=== PATIENT | female | born 1950 | race Caucasian/White ===

== ENCOUNTER → 2018-09-28 12:12 | Outpatient (CLI) | payer MEDICARE, BC, SELFPAY ==
--- NOTE | 2018-09-28 | DI.MG.S_ITS ---
BILATERAL DIGITAL SCREENING MAMMOGRAM 3D/2D WITH CAD: 09/28/2018 CLINICAL: Routine screening. Family history of breast cancer. Comparison is made to exams dated: 09/17/2014 mammogram, 11/04/2011 mammogram, and 11/02/2011 mammogram - [facility]. The tissue of both breasts is heterogeneously dense. This may lower the sensitivity of mammography. Current study was also evaluated with a Computer Aided Detection (CAD) system. No significant masses, calcifications, or other findings are seen in either breast. There has been no significant interval change. IMPRESSION: NEGATIVE There is no mammographic evidence of malignancy. A 1 year screening mammogram is recommended. This exam was interpreted at Station ID: [id number]. NOTE: For mammograms, a report in lay terms will be sent to the patient. Approximately 15% of breast malignancies will not be visualized mammographically. In the management of a palpable breast mass, a negative mammogram must not discourage biopsy of a clinically suspicious lesion. Electronically Signed By: Juan rojas/ernesto:09/28/2018 14:40:24 letter sent: Normal Exam ACR BI-RADS Category 1: Negative [id number]
== END ==
PROVIDERS: PCP Family Medicine; Visit Provider Family Medicine
DX: Z12.31 Encounter for screening mammogram for malignant neoplasm of breast (principal); Z80.3 Family history of malignant neoplasm of breast; M81.0 Age-related osteoporosis without current pathological fracture; Z78.0 Asymptomatic menopausal state; Z82.62 Family history of osteoporosis
CPT/HCPCS: 77063; 77067; 77080

== ENCOUNTER → 2019-11-06 11:44 | Outpatient (ROUT) | payer MEDICARE, BC, SELFPAY ==
[2019-11-06 12:22] LABS: D Dimer < 200 ng/mL (<230)
== END ==
PROVIDERS: PCP Family Medicine; Visit Provider Family Medicine
DX: R25.2 Cramp and spasm (principal); R00.2 Palpitations; Z79.899 Other long term (current) drug therapy
CPT/HCPCS: 85379

== ENCOUNTER → 2020-07-24 12:25 | Outpatient (CLI) | payer MEDICARE, BC, SELFPAY ==
--- NOTE | 2020-07-24 | DI.MRI.S_ITS ---
PROCEDURE: MR HEAD/BRAIN WO/W CON INDICATIONS: Hallucinations, unspecified TECHNIQUE: Noncontrast axial T1 spin echo, axial T2 fast spin echo, sagittal and axial FLAIR, coronal T2 fast spin echo, axial gradient echo, axial diffusion and ADC through the brain. After the administration of contrast, axial and coronal T1 spin echo with fat saturation through the brain. COMPARISON: None. FINDINGS: Image quality: Excellent. CSF spaces: Basal cisterns are patent. No extra-axial fluid collections. Ventricles are normal in size and shape. Brain: No midline shift. No intracranial bleeds or masses. No abnormal intracranial enhancement. There is mild cerebral volume loss for age. There is minimal periventricular white matter chronic small vessel ischemic change. The brainstem appears normal. Diffusion-weighted images demonstrate no acute ischemic insults. No chronic ischemic insults. Normal intravascular flow voids are present. Skull and face: Calvarial marrow is normal in signal. Orbits appear normal. Sinuses: Sinuses and mastoids appear clear. IMPRESSION: 1. Mild volume loss. Minimal small vessel ischemic disease. 2. No acute process. No recent infarct. Dictated by: Alf Calderon M.D. on 07/24/2020 at 13:40 Approved by: Alf Calderon M.D. on 07/24/2020 at 13:41
== END ==
PROVIDERS: PCP Family Medicine; Referring Provider Student in an Organized Health Care Education/Training Program; Visit Provider Student in an Organized Health Care Education/Training Program
DX: R44.3 Hallucinations, unspecified (principal); F41.9 Anxiety disorder, unspecified; F32.9 Major depressive disorder, single episode, unspecified; R44.0 Auditory hallucinations
CPT/HCPCS: 70553

== ENCOUNTER 2020-09-11 17:49 | Emergency (ER) | payer MEDICARE, BC, SELFPAY ==
[2020-09-11] VITALS (9 sets, daily range): BP systolic 118–140; BP diastolic 59–78; PULSE 76–87; RESP 14–32; TEMP 36.6; O2SAT 99–100; BMI 23.8
--- NOTE | 2020-09-11 18:59 | ED.ARRPALP ---
HPI - Arrhythmia/Palpitations General Chief Complaint: Arrhythmia/Palpitations Stated Complaint: possible panic attack Time Seen by Provider: 09/11/20 18:58 Source: patient Mode of arrival: Ambulatory Limitations: no limitations History of Present Illness HPI narrative: Patient is a 70-year-old female who presents with chest palpitations. She has a new diagnosis of Parkinson's and has some anxiety that goes along with it. She has been taking Xanax for her anxiety however the Xanax did not work today. She feels some chest discomfort in the center of her chest. Nonradiating no provocation or palliation. It is mild pain now. She is being followed by Neurology and Psychiatry for new diagnosis. MD complaint: palpitations Related Data Allergies Allergy/AdvReac Type Severity Reaction Status Date / Time No Known Drug Allergies Allergy Verified 09/11/20 18:00 Review of Systems Review of Systems Narrative: GENERAL: Denies chills, fatigue, malaise, fever, sweats, travel HEENT: Denies sinus pain, ear pain, sore throat, difficulty swallowing, neck pain RESPIRATORY: Denies dyspnea, cough, wheezing, hemoptysis, sputum. CARDIOVASCULAR: See HPI GASTROINTESTINAL: Denies nausea, vomiting, abdominal pain, diarrhea, constipation, melena. : Denies dysuria, frequency, incontinence, hematuria, urinary retention, flank pain. MUSCULOSKELETAL: Denies weakness, joint pain, or bony pain SKIN: No rash, no erythema, no pruritus NEUROLOGIC: Denies weakness, dizziness, headache, numbness, change in speech, confusion PSYCHIATRIC: No concerning psychosocial issues. 12 point review of systems is negative except for those stated above and HPI Patient History Medical History Parkinsons Social History Smoking Status: Smoker, status unknown Smoking Status: Smoker, status unknown alcohol intake frequency: holidays/special occasions only Substance Use Type: does not use Exam Initial Vital Signs Initial Vital Signs: Vital Signs Temperature 97.9 F 09/11/20 17:58 Pulse Rate 87 09/11/20 17:58 Respiratory Rate 14 09/11/20 17:58 Blood Pressure 118/72 09/11/20 17:58 Pulse Oximetry 100 09/11/20 17:58 GENERAL: Alert slightly anxious 70-year-old female but appears well and in no acute distress. HEENT: Head atraumatic,EOMI, pupils reactive, face symmetric, moist mucous membranes CARDIOVASCULAR: Regular rate and rhythm without murmurs, rubs or gallops. RESPIRATORY: Breath sounds equal bilaterally, no wheezes rales or rhonchi. ABDOMEN: Soft, nontender. Normoactive bowel sounds all 4 quadrants. No guarding or rebound. EXTREMITIES: Normal range of motion, no clubbing or edema. Neurovascularly intact NEUROLOGICAL: Alert and oriented x4.Normal gait and speech. SKIN: Warm, dry, no laceration, no petechiae, no rashes or lesions. Scores HEART Score Heart Score history: Slightly Suspicious Heart Score EKG: Normal Heart Score Age: > or = 65 years old Heart Score risk factors: No known risk factors Heart Score troponin: < or = to normal limit Heart Score Total: 2 Course Orders Ordered: ED Orders 09/11/20 18:00 EKG-12 Lead Stat 09/11/20 18:22 Complete Blood Count AUTO DIFF Stat Comprehensive Metabolic Panel Stat Lipase Stat NT-proBNP (BNP-Adult 18+) Stat Troponin & CK Cardiac Panel Stat 09/11/20 19:06 XR chest 1V Stat Discontinued Medications Aspirin (Aspirin 81 Mg Chew Tab) 324 mg PO NOW ONE Stop: 09/11/20 19:07 Last Admin: 09/11/20 19:23 Dose: 324 mg Documented by: LOUISE Lorazepam (Lorazepam 2 Mg/Ml Inj) 0.5 mg IV NOW ONE Stop: 09/11/20 19:07 Last Admin: 09/11/20 19:23 Dose: 0.5 mg Documented by: LOUISE Vital Signs Vital signs: Vital Signs - 8 hr 09/11/20 17:58 09/11/20 18:10 09/11/20 18:14 Temperature 97.9 F Pulse Rate 87 83 86 Respiratory Rate 14 16 Blood Pressure 118/72 140/78 135/77 Pulse Oximetry 100 99 99 09/11/20 18:30 09/11/20 19:00 09/11/20 19:30 Temperature Pulse Rate 80 79 77 Respiratory Rate 32 H 28 H 26 H Blood Pressure 122/71 119/72 Pulse Oximetry 99 100 99 09/11/20 19:31 09/11/20 20:00 09/11/20 20:30 Temperature Pulse Rate 80 76 76 Respiratory Rate 24 28 H 26 H Blood Pressure 131/59 L 125/67 129/65 Pulse Oximetry 99 100 100 MDM - Arrhythmia/Palpitations Lab Data Attestation: I reviewed the patient's lab results. Result diagrams: 09/11/20 18:22 09/11/20 18:22 Labs: Lab Results 09/11/20 09/11/20 Range/Units 18:22 18:22 WBC 9.4 (4.5-11.0) X10^3/uL RBC 3.88 L (4.0-5.2) X10^6/uL Hgb 12.8 (12.0-16.0) g/dL Hct 37.5 (36-46) % MCV 96.5 (80-100) fL MCH 32.9 (26-34) PG MCHC 34.1 (30-36) % RDW 13.0 (11.6-14.8) % Plt Count 284 (150-400) X10^3/uL Neut % (Auto) 60.2 (50-75) % Lymph % (Auto) 30.3 (25-40) % Spalding % (Auto) 7.0 (3-14) % Eos % (Auto) 2.0 (2-4) % Baso % (Auto) 0.5 (0-2) % Neut # (Auto) 5600 (7535-3908) /uL Lymph # (Auto) 2800 (0193-0709) /uL Spalding # (Auto) 700 (0-900) /uL Eos # (Auto) 200 (0-450) /uL Baso # (Auto) 0 (0-100) /uL Sodium 141 (137-145) mmol/L Potassium 4.1 (3.4-5.1) mmol/L Chloride 105 (98-107) mmol/L Carbon Dioxide 26 (22-32) mmol/L BUN 23 H (7-17) mg/dL Creatinine 0.64 (0.52-1.04) mg/dL Estimated GFR > 60.0 (>60) mL/min BUN/Creatinine Ratio 35.9 H (6-22) Glucose 100 (80-110) mg/dL Calcium 10.2 (8.4-10.2) mg/dL Total Bilirubin 0.5 (0.2-1.3) mg/dL AST 32 (14-36) IU/L ALT 10 (<35) IU/L Alkaline Phosphatase 95 (38-126) U/L Total Creatine Kinase 39 (30-135) U/L CK-MB (CK-2) TNP CK-MB (CK-2) Rel Index TNP Troponin I < 0.012 (0.01-0.034) ng/mL NT-Pro-B Natriuret Pep 102 (<125) pg/mL Total Protein 8.4 H (6.3-8.2) g/dL Albumin 4.7 (3.5-5.0) g/dL Globulin 3.7 (1.7-4.1) g/dL Albumin/Globulin Ratio 1.3 (1.0-2.8) Lipase 75 (23-300) U/L Imaging Data Chest x-ray: Radiologist's Impresson: PROCEDURE: XR CHEST 1V INDICATIONS: chest pain TECHNIQUE: One view of the chest was acquired. COMPARISON: None. FINDINGS: Surgical changes and devices: None. Lungs and pleura: Lungs are clear. No pleural effusions or pneumothorax. Mediastinum: Mediastinal contours appear normal. Heart size is normal. Bones and chest wall: No suspicious bony lesions. Overlying soft tissues appear unremarkable. IMPRESSION: No acute cardiopulmonary abnormality. Dictated by: Sherman Santos M.D. on 09/11/2020 at 19:54 ECG Data Attestation: I personally reviewed and interpreted this ECG as follows: Interpretation: Normal sinus rhythm rate 81 p.r. interval 148 QRS [address] changes no T-wave inversions MDM Narrative Medical decision making narrative: Patient is having atypical chest pain possibly related to Parkinson's or her ongoing anxiety. Ativan seemed to help her. Troponin EKG chest x-ray and workup in the ED are overall reassuring. I discussed with her that she may need further cardiac workup with her primary care provider. Discharge Plan Departure Patient Disposition: Home Clinical Impression: Atypical chest pain Instructions: DI for Atypical Chest Pain Activity Restrictions/Additional Instructions: *You have been diagnosed with atypical chest pain *What to do: At this time blood work is overall reassuring. You may require further heart testing with her primary care provider but at this time you do not need to stay in the hospital. *Continue to take medications as directed *Follow up with your primary care provider in 2-3 days *Return to ER if you should have pacing chest pain palpitations dizziness lightheadedness shortness of breath or any new, worsening or concerning symptoms Referrals: Aniceto Lion MD [Primary Care Provider] -
--- NOTE | 2020-09-11 19:06 | DI.RAD.S_ITS ---
PROCEDURE: XR CHEST 1V INDICATIONS: chest pain TECHNIQUE: One view of the chest was acquired. COMPARISON: None. FINDINGS: Surgical changes and devices: None. Lungs and pleura: Lungs are clear. No pleural effusions or pneumothorax. Mediastinum: Mediastinal contours appear normal. Heart size is normal. Bones and chest wall: No suspicious bony lesions. Overlying soft tissues appear unremarkable. IMPRESSION: No acute cardiopulmonary abnormality. Dictated by: Sherman Santos M.D. on 09/11/2020 at 19:54 Approved by: Sherman Santos M.D. on 09/11/2020 at 19:54
[2020-09-11 19:14] LABS: Add Manual Diff / Slide Review NO; Basophils Absolute Auto 0 /uL (0-100); Basophils Percent Auto 0.5 % (0-2); Eosinophils Absolute Auto 200 /uL (0-450); Hematocrit 37.5 % (36-46); Hemoglobin 12.8 g/dL (12.0-16.0); Lymphocytes Absolute Auto 2800 /uL (1100-4500); Lymphocytes Percent Auto 30.3 % (25-40); Mean Corpuscular HGB Conc 34.1 % (30-36); Mean Corpuscular Hemoglobin 32.9 PG (26-34); Mean Corpuscular Volume 96.5 fL (80-100); Monocytes Absolute Auto 700 /uL (0-900); Neutrophils Absolute Auto 5600 /uL (1500-7000); Neutrophils Percent Auto 60.2 % (50-75); Platelet Count 284 X10^3/uL (150-400); Red Blood Cell Count 3.88 X10^6/uL (4.0-5.2); White Blood Cell Count 9.4 X10^3/uL (4.5-11.0)
[2020-09-11 19:19] LABS: Alanine Aminotransferase 10 IU/L (<35); Albumin 4.7 g/dL (3.5-5.0); Albumin Globulin Ratio 1.3 (1.0-2.8); Alkaline Phosphatase 95 U/L (38-126); Aspartate Aminotransferase 32 IU/L (14-36); BUN Creatinine Ratio 35.9 (6-22); Bilirubin Total 0.5 mg/dL (0.2-1.3); Blood Urea Nitrogen 23 mg/dL (7-17); Calcium 10.2 mg/dL (8.4-10.2); Carbon Dioxide 26 mmol/L (22-32); Chloride 105 mmol/L (98-107); Creatine Kinase 39 U/L (30-135); Estimated Glomerular Filt Rate > 60.0 mL/min (>60); Globulin 3.7 g/dL (1.7-4.1); Glucose 100 mg/dL (80-110); HEMOLYSIS < 15 (0-50); Lipase 75 U/L (23-300); Potassium 4.1 mmol/L (3.4-5.1); Sodium 141 mmol/L (137-145); Total Protein 8.4 g/dL (6.3-8.2)
[2020-09-11] MEDS: LORazepam 2 MG/ML INJ 0.5 MG IV (19:23)
[2020-09-11] MEDS: ASPIRIN 81 MG CHEW TAB 324 MG PO (19:23)
[2020-09-11 19:32] LABS: NT-proBNP (BNP-Adult 18+) 102 pg/mL (<125); Troponin I < 0.012 ng/mL (0.01-0.034)
== END 2020-09-11 20:48 | disposition home or self-care (01) ==
PROVIDERS: Emergency Provider Emergency Medicine; PCP Family Medicine
DX: R07.89 Other chest pain (principal); G20 Parkinson's disease; F41.9 Anxiety disorder, unspecified
CPT/HCPCS: 36415; 71045; 80053; 82550; 83690; 83880; 84484; 85025; 93005; 96374; 99284; J2060

== ENCOUNTER 2021-06-29 14:30 | Outpatient (RCR) | payer MEDICARE, BC, SELFPAY ==
--- NOTE | 2021-06-12 16:39 | ST.OPPOC ---
Physical, Occupational & Speech Therapy At [facility] Visit Care Team Role Provider Type Aniceto Lion MD Attending Provider Physician Family Provider Primary Care Provider Referring Provider Address: [address] [place], [address] Speech Pathology Plan of Care Plan of Care Dates 06/12/2021 - Cognitive Function Within normal limits Findings Results of the CLQT indicate all cognitive skills (i.e., attention, memory, executive functions, language, and visuospatial skills) are WNL. Some difficulty noted with perseveration, though Nesha is able to identify when she is perseverating. Noted that when perseveration is identified, Nesha does not correct perseverated items. Nesha reported difficulty with saliva management, especially when sleeping. Recommend treatment to maintain current skills with swallowing and cognition given diagnosis of progressive disease. Short Term Goals 1. Nesha will demonstrate independent use of 3 external supports (e.g., calendar, alarms, etc.) to in her daily life as reported by patient and her and observed in treatment sessions. 2. Nesha will perform exercises to increase strength, coordination, and ROM of swallow musculature independently to maintain current swallow ability and decrease risk of aspiration. Senior Care Goals 1. Nesha will demonstrate independent use of cognitive strategies across multiple settings to maintain/slow decline of cognitive skills. Electronically Signed by: JOAQUIN Gannon 06/15/21 0058 Please Sign and Return: I have reviewed this Plan of Care and certify that the skilled therapy services above are required to meet the patient?s needs. Physician Signature Date Printed Name and Credentials Clinical Instructor Signature Printed Name and Credentials
--- NOTE | 2021-06-12 16:39 | ST.OP.ACL ---
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 Lion Reason for Referral Memory difficulties, difficulty swallowing, diagnosis of Parkinsons Setting Assessment Location Outpatient Care Visit Type Note Type Initial evaluation Next Note Type Next Note Type Treatment Note Patient Information Identification Type Name Medical History Nesha is a 71 year old female. She received a diagnosis of Parkinsons in July 2020 and a diagnosis of Lewy-Body Dementia in August 2020. Per case history, Nesha has a history of anxiety and depression and has been experiencing cognitive decline and increasing auditory hallucinations. Language(s) Spoken in the Home [employer] Occupation Status Retired Previous Therapy History of Therapy Nesha was seen at [facility] for a swallow screen on 06/09/2021 and referred for speech services and [facility]. Subjective Patient Report eNsha reported she experiences saliva pooling at night, though symptoms increase when she takes an over the counter allergy medication. She added she has been experiencing nausea with her pills, though the nausea has improved with a slower rate of eating and reducing spicy foods. Nesha's , Manjinder, was present for the evaluation and reported Nesha exhibits congested breathing while sleeping. Nesha reported no difficulty chewing or swallowing food or liquids. When clinician inquired about cognitive difficulties, Nesha reported she has some difficulty with memory and uses a calendar to track appointments and a check -forest system to track medications. She added that she will sometimes forget medications even when using this system. Mental Status Alert,Responsive,Cooperative Assessment Oral Motor Examination Completed Yes Results Completed oral motor exam. Nesha presents with slight right deviation of lips on pucker when alternating between smile and pucker. Facial features were symmetrical at rest. Jaw deviated slightly to the left when opening, though Nesha reported no pain or discomfort with this movement. Tongue strength and ROM was WNL. Velum deviated slightly to the left in motion, though was symmetrical at rest. One tooth missing on lower right side, otherwise dentition was WNL. Did not palpate hyolaryngeal elevation and excursion at this appointment as this was completed during swallow screen on 06/09/2021 by this clinician. At swallow screen, hyolaryngeal elevation and excursion was WNL. Structure and function of oral mechanism appears WNL for the purposes of speech and swallowing at this time. Will provide Nesha exercises to maintain strength of oral mechanism due to concerns with saliva management and diagnosis of Parkinsons. Informal Assessment Receptive Language Normal Yes Expressive Language Normal Yes Pragmatic Language Normal Yes Formal Assessment Standardized Test/Screener Type Cognitive Linguistic Quick Test (CLQT) Administration Complete Results Results of the CLQT indicate all cognitive skills are WNL. Nesha demonstrated predictive awareness of errors during clock drawing task with regards to spacing of numbers. Difficulty with retelling a story, though Nesha was able to answer questions regarding details of the story with no difficulty. Nesha identified when she made an error on the symbol trials task and was able to correct it independently. She reported she had been practicing generative naming with animals at home and performed very well on this task. Difficulty noted with generative naming with a novel category (i.e., words starting with m). Nesha perseverated some items when completing generative naming task, though identified that she had said them before each time she listed them again. Significant perseveration noted on design generation task, though Nesha again was able to identify when she was repeating a design she had already drawn. Nehsa did not correct these repetitions after identifying them. Findings/Results Cognitive Function Within normal limits Findings Results of the CLQT indicate all cognitive skills (i.e., attention, memory, executive functions, language, and visuospatial skills) are WNL. Some difficulty noted with perseveration, though Nesha is able to identify when she is perseverating. Noted that when perseveration is identified, Nesha does not correct perseverated items. Nesha reported difficulty with saliva management, especially when sleeping. Recommend treatment to maintain current skills with swallowing and cognition given diagnosis of progressive disease. Prognosis Prognosis Fair Based on Cognitive status,Family support,Comorbidities,Duration of symptoms/severity,Time since onset Plan of Care Speech-Language Treatment Yes Frequency Once a week Duration 45 minutes Patient/Caregiver Education Described results of evaluation,Patient expressed understanding of evaluation, Patient expressed agreement with goals and treatment plans ,Family/caregivers expressed understanding of evaluation, Family/caregivers expressed agreement with goals and treatment plan,Patient requires further education/ training,Family/caregivers require further education/ training Short Term Goals 1. Nesha will demonstrate independent use of 3 external supports (e.g., calendar, alarms, etc.) to in her daily life as reported by patient and her and observed in treatment sessions. 2. Nesha will perform exercises to increase strength, coordination, and ROM of swallow musculature independently to maintain current swallow ability and decrease risk of aspiration. Snf Goals 1. Nesha will demonstrate independent use of cognitive strategies across multiple settings to maintain/slow decline of cognitive skills. Discharge Recommendations Home
--- NOTE | 2021-06-16 16:29 | ST.OPTN ---
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 She received a diagnosis of Parkinsons in July 2020 and a diagnosis of Lewy-Body Dementia in August 2020. Per case history, Nesha has a history of anxiety and depression and has been experiencing cognitive decline and increasing auditory hallucinations. Subjective Identification Type Name Identification Reconciled With Medical Record Others Present Family Observations/Patient Presentation Nesha arrived on time accompanied by her , who was present for the session. Chief Complaint(s) Swallowing,Cognitive Objective Short Term Goals 1. Nesha will demonstrate independent use of 3 external supports (e.g., calendar, alarms, etc.) in her daily life as reported by patient and her and observed in treatment sessions. 2. Nesha will perform exercises to increase strength, coordination, and ROM of swallow musculature independently to maintain current swallow ability and decrease risk of aspiration. Intermediate Goals Nesha will demonstrate independent use of cognitive strategies across multiple settings to maintain/slow decline of cognitive skills. Treatment Activities Discussed results of CLQT assessment and areas of difficulty with cognitive domains in daily life. Provided patient education regarding cognitive domains, swallowing, progressive disease, and therapeutic goals . Assessment Patient Response to Treatment Good Rehab Potential Good Impairments Identified Dementia,Dysphagia,Parkinson's Disease Progress Towards Goals Good Progress Assessment of Overall Progress Improving Assessment of Improvement Nesha reported she has difficulty with multitasking as she experiences increased anxiety. She added that she experiences difficulty when reading as she becomes fidgety and has trouble concentrating . Nesha reported she is often fidgety and distracted by her thoughts. She added her anxiety has increased since COVID and she is working with her PCP to adjust her medications. Nesha reported she used to cook more, though has decreased how much she cooks over the past year. She indicated the decrease in cooking is more due to her decrease in taste and smell than any cognitive difficulties. Nesha inquired about a Parkinson's specific diet and indicated she has difficulty putting on weight. Nesha reported difficulty with tracking lengthy to-do lists and indicated she keeps written lists but loses them. Discussed use of load planner to track appointments and to-do lists. Provided education on prognosis with memory and explored possible implementation of memory notebook as memory declines. Discussed swallowing difficulty and provided exercises for home practice. Reviewed with Patient Goals,Home Exercise Program Patient/Caregiver Understanding Good Plan Amount of Therapy Recommended 6 Months Frequency of Treatment Once a Week Comment or once every other week Length of Session 45 Minutes Therapeutic Contents Client Education,Cognitive- Linguistic Training,Home Exercise Program,Swallowing/ Feeding Provided Patient/Caregiver Instruction Home Exercise Program,Plan of Care,Questions/Concerns Therapy Recommendations Continue with Current Program
--- NOTE | 2021-06-26 15:16 | ST.OPTN ---
Visit Care Team Role Provider Type Aniceto Lion MD Attending Provider Physician Family Provider Primary Care Provider Referring Provider Address: [facility] [address], [place], [address] HYDRAULIC MINER BLASTING Treatment Note HYDRAULIC MINER BLASTING Treatment Note Start: 06/16/21 15:18 Freq: Status: Active Protocol: Document 06/26/21 15:08 ZS (Rec: 06/26/21 15:16 ZS [id number]) Speech Pathology Treatment Note Session Time Visit Start Time 14:30 Visit Stop Time 15:10 Total Visit Minutes 40 Visit Information Visit Number 2 Plan of Care Dates 06/12/2021 - 11/12/2021 Insurance Information Medicare Setting Treatment Setting Outpatient Care Visit Type Note Type Treatment Note Next Note Type Next Note Type Treatment Note General Information General Information Nesha is a 71 year old female. She received a diagnosis of Parkinsons in July 2020 and a diagnosis of Lewy-Body Dementia in August 2020. Per case history, Nesha has a history of anxiety and depression and has been experiencing cognitive decline and increasing auditory hallucinations. Subjective Identification Type Name Identification Reconciled With Medical Record Others Present Family Observations/Patient Presentation Nesha arrived on time accompanied by her , who was present for the session. Chief Complaint(s) Swallowing,Cognitive Objective Short Term Goals 1. Nesha will demonstrate independent use of 3 external supports (e.g., calendar, alarms, etc.) in her daily life as reported by patient and her and observed in treatment sessions. 2. Nesha will perform exercises to increase strength, coordination, and ROM of swallow musculature independently to maintain current swallow ability and decrease risk of aspiration. Residential Goals Nesha will demonstrate independent use of cognitive strategies across multiple settings to maintain/slow decline of cognitive skills. Treatment Activities Discussed results of CLQT assessment and progress with strategies implemented in previous session. Assessment Patient Response to Treatment Good Rehab Potential Good Impairments Identified Dementia,Dysphagia,Parkinson's Disease Progress Towards Goals Good Progress Assessment of Overall Progress Improving Assessment of Improvement Nesha reported she has difficulty reading, as she gets fidgity and cannot read more than a paragraph. She added she will sometimes have difficulty with word finding while completing crossword puzzles and in her daily life. She indicated she has been using check ryder to track which pills she has taken and this is working well. Discussed targeting word- finding strategies in future sessions and Nesha will practice these at home this week. Discussed use of fidgit tools (e.g., spinners, stress balls, etc.) while reading to increase ability to attend to book. If fidgit tools do not help, audiobooks while walking are recommended. Nesha added saliva management has improved with the allergy medication, though she is having difficulty swallowing her medications late at night. Discussed use of chin tuck or carrier to aid in swallowing medications. Nesha expressed interest in trying strategies. Reviewed with Patient Goals,Home Exercise Program Patient/Caregiver Understanding Good Plan Amount of Therapy Recommended 6 Months Frequency of Treatment Once a Week Comment or once every other week Length of Session 45 Minutes Therapeutic Contents Client Education,Cognitive- Linguistic Training,Home Exercise Program,Swallowing/ Feeding Provided Patient/Caregiver Instruction Home Exercise Program,Plan of Care,Questions/Concerns Therapy Recommendations Continue with Current Program
--- NOTE | 2021-06-29 15:36 | ST.OPTN ---
Visit Care Team Role Provider Type Aniceto Lion MD Attending Provider Physician Family Provider Primary Care Provider Referring Provider Address: [address], [place], [address] LAND SURVEYOR Treatment Note LAND SURVEYOR Treatment Note Start: 06/16/21 15:18 Freq: Status: Active Protocol: Document 06/29/21 15:32 ZS (Rec: 06/29/21 15:36 ZS [id number]) Speech Pathology Treatment Note Session Time Visit Start Time 14:30 Visit Stop Time 15:25 Total Visit Minutes 55 Visit Information Visit Number 3 Plan of Care Dates 06/12/2021 - 11/12/2021 Insurance Information Medicare Setting Treatment Setting Outpatient Care Visit Type Note Type Treatment Note Next Note Type Next Note Type Treatment Note General Information General Information Nesha is a 71 year old female. She received a diagnosis of Parkinsons in July 2020 and a diagnosis of Lewy-Body Dementia in August 2020. Per case history, Nesha has a history of anxiety and depression and has been experiencing cognitive decline and increasing auditory hallucinations. Subjective Identification Type Name Identification Reconciled With Medical Record Others Present Family Observations/Patient Presentation Nesha arrived on time accompanied by her , who was present for the session. Chief Complaint(s) Swallowing,Cognitive Objective Short Term Goals 1. Nesha will demonstrate independent use of 3 external supports (e.g., calendar, alarms, etc.) in her daily life as reported by patient and her and observed in treatment sessions. 2. Nesha will perform exercises to increase strength, coordination, and ROM of swallow musculature independently to maintain current swallow ability and decrease risk of aspiration. Shelter Goals Nesha will demonstrate independent use of cognitive strategies across multiple settings to maintain/slow decline of cognitive skills. Treatment Activities Discussed strategy implementation and answered questions. Provided resources and discussed strategies for voice, attention, and word finding. Assessment Patient Response to Treatment Good Rehab Potential Good Impairments Identified Dementia,Dysphagia,Parkinson's Disease Progress Towards Goals Good Progress Assessment of Overall Progress Improving Assessment of Improvement Nesha reported she continues to get fidgety when sitting for prolonged periods and did not have a chance to try fidget tools. She will talk to her doctor this week to determine if it is related to medications and will try fidgit toys and meditation at home. Nesha reported success with chin tuck strategy when swallowing and will continue use of this. Practiced use of descriptions to help with word finding, which Nesha used independently. Reviewed with Patient Goals,Home Exercise Program Patient/Caregiver Understanding Good Plan Amount of Therapy Recommended 6 Months Frequency of Treatment Once a Week Comment or once every other week Length of Session 45 Minutes Therapeutic Contents Client Education,Cognitive- Linguistic Training,Home Exercise Program,Swallowing/ Feeding Provided Patient/Caregiver Instruction Home Exercise Program,Plan of Care,Questions/Concerns Therapy Recommendations Continue with Current Program
--- NOTE | 2021-08-04 14:29 | ST.OPDS ---
Visit Care Team Role Provider Type Aniceto Lion MD Attending Provider Physician Family Provider Primary Care Provider Referring Provider Address: [facility] [address], [place], [address] TAI CHI INSTRUCTOR Treatment Note TAI CHI INSTRUCTOR Treatment Note Start: 06/16/21 15:18 Freq: Status: Active Protocol: Document 08/04/21 14:24 ZS (Rec: 08/04/21 14:29 ZS [id number]) Speech Pathology Treatment Note Visit Information Plan of Care Dates 06/12/2021 - 11/12/2021 Insurance Information Medicare Setting Treatment Setting Outpatient Care Visit Type Note Type Discharge Summary General Information Patient History Nesha is a 71 year old female. She received a diagnosis of Parkinsons in July 2020 and a diagnosis of Lewy-Body Dementia in August 2020. Per case history, Nesha has a history of anxiety and depression and has been experiencing cognitive decline and increasing auditory hallucinations. Subjective Identification Type Name Identification Reconciled With Medical Record Others Present Family Observations/Patient Presentation Nesha called to discharge from speech therapy as she does not feel like she needs it anymore. Chief Complaint(s) Swallowing,Cognitive Objective Short Term Goals 1. Nesha will demonstrate independent use of 3 external supports (e.g., calendar, alarms, etc.) in her daily life as reported by patient and her and observed in treatment sessions. 2. Nesha will perform exercises to increase strength, coordination, and ROM of swallow musculature independently to maintain current swallow ability and decrease risk of aspiration. Custodial Goals Nesha will demonstrate independent use of cognitive strategies across multiple settings to maintain/slow decline of cognitive skills. Treatment Activities Nesha called to discharge from speech therapy as she does not feel like she needs it anymore. Assessment Patient Response to Treatment Excellent Rehab Potential Excellent Impairments Identified Dementia,Dysphagia,Parkinson's Disease Progress Towards Goals Goals Met,Appropriate for Discharge Assessment of Overall Progress Improving Assessment of Improvement Nesha met all goals and independently uses strategies discussed and practiced during sessions. She is appropriate for discharge at this time. Reviewed with Patient Goals,Home Exercise Program Patient/Caregiver Understanding Good Plan Amount of Therapy Recommended No Further Therapy Frequency of Treatment No Further Therapy Therapeutic Contents Client Education,Cognitive- Linguistic Training,Home Exercise Program,Swallowing/ Feeding Provided Patient/Caregiver Instruction Home Exercise Program,Plan of Care,Questions/Concerns Therapy Recommendations Continue with Current Program, Discharge from Speech Therapy Reason for Discharge Pt request.
== END 2021-08-05 07:54 ==
LOC: SP 14:30
PROVIDERS: Family Provider Family Medicine; PCP Family Medicine; Referring Provider Family Medicine; Visit Provider Family Medicine
DX: R13.10 Dysphagia, unspecified (principal)
CPT/HCPCS: 96125; 97129; 97130

== ENCOUNTER → 2021-07-08 14:41 | Outpatient (CLI) | payer MEDICARE, BC, SELFPAY | PROVIDERS: Family Provider Family Medicine; PCP Family Medicine; Referring Provider Psychiatry & Neurology Psychiatry; Visit Provider Psychiatry & Neurology Psychiatry | DX: Z79.899 Other long term (current) drug therapy (principal) | CPT/HCPCS: 93005 ==

== ENCOUNTER 2021-09-29 14:46 | Emergency (ER) | payer MEDICARE, BC, SELFPAY ==
[2021-09-29] VITALS (11 sets, daily range): BP systolic 131–147; BP diastolic 67–76; PULSE 82–98; RESP 11–18; TEMP 37.1; O2SAT 98–100; BMI 20.6
--- NOTE | 2021-09-29 15:13 | DI.RAD.S_ITS ---
PROCEDURE: XR CHEST 1V INDICATIONS: syncope TECHNIQUE: One view of the chest was acquired. COMPARISON: [facility], CR, XR CHEST 1V, 09/11/2020, 19:34. FINDINGS: Surgical changes and devices: None. Lungs and pleura: Lungs are clear. No pleural effusions or pneumothorax. Mediastinum: Mediastinal contours appear normal. Heart size is normal. Bones and chest wall: No suspicious bony lesions. Overlying soft tissues appear unremarkable. IMPRESSION: No acute cardiopulmonary findings. Dictated by: Lucina Luevano M.D. on 09/29/2021 at 16:23 Approved by: Lucina Luevano M.D. on 09/29/2021 at 16:23
--- NOTE | 2021-09-29 15:13 | ED_ITS ---
HPI - Syncope General Chief Complaint: Dizziness Stated Complaint: SOB DIZZY WEAKNESS Time Seen by Provider: 09/29/21 14:55 Source: patient Mode of arrival: Ambulatory Limitations: no limitations History of Present Illness HPI narrative: Patient is a 71-year-old female who has history of depression and Parkinson's presents today from the ENT office with some dizziness and weakness. Apparently she was there with her who was being seen she was in the waiting room and got dizzy. She says she just did not feel well and wanted to be evaluated. She says that she is dizzy frequently mostly positional. She is frequently nauseated with decrease in appetite, she has lost 50 lb since last January. She says she is generally getting weak. She denies Headaches, chest pain or palpitations. She is not eating or drinking much. She also says she has had ongoing shortness of breath. She says she feels short of breath at rest and with exertion. It has been ongoing for months. She feels like her body is restricting her from taking air. She has no conversational dyspnea and is not currently hypoxic. She denies fever chills. In episodes of chest pain. Related Data Home Medications Medication Instructions Recorded Confirmed carbidopa ER 50 mg-levodopa 200 mg 1 tab PO TID tab 09/16/21 09/16/21 tablet,extended release donepezil 5 mg tablet 10 mg PO BID tab 09/16/21 Previous Rx's Medication Instructions Recorded venlafaxine 75 mg capsule,extended 75 mg PO DAILY #30 cap 06/04/21 release 24 hr pimavanserin 34 mg capsule 34 mg PO DAILY #30 cap 09/16/21 Allergies Allergy/AdvReac Type Severity Reaction Status Date / Time Sulfa (Sulfonamide Allergy Unknown mom told Verified 09/29/21 14:58 Antibiotics) her she had a childhood reaction acetaminophen [From Vicodin] AdvReac Intermediate vomiting Verified 09/29/21 1 4:58 hydrocodone [From Vicodin] AdvReac Intermediate vomiting Verified 09/29/21 14:58 Review of Systems Review of Systems ROS Unobtainable: All systems reviewed & are unremarkable except as noted in HPI and below Constitutional Constitutional: Reports as per HPI, Denies body ache(s), Denies chills, Denies headache(s), Reports lethargy, Reports poor appetite, Reports weakness and Reports weight loss Eyes Eyes: Denies diplopia ENT Ears, Nose, Mouth, and Throat: Reports dizziness and Denies headache(s) Cardiovascular Cardiovascular: Denies syncope, Denies irregular heart rhythm, Denies lightheadedness, Reports dyspnea and Denies orthopnea Respiratory Respiratory: Reports as per HPI, Denies cough, Reports dyspnea and Denies wheezing Gastrointestinal Gastrointestinal: Denies abdominal pain, Reports nausea and Denies vomiting Genitourinary Genitourinary: Denies urinary incontinence Musculoskeletal Musculoskeletal: Denies arthralgias and Denies back pain Integumentary/Breasts Skin/Breast: Denies rash Neurologic Neurologic: Reports dizziness, Denies syncope, Denies headache(s) and Reports weakness Psychiatric Psychiatric: Reports other (History of depression) Allergic/Immunologic Allergic/Immunologic: Denies wheezing Patient History Medical History Parkinsons Social History Smoking Status: Never smoker Smoking Status: Never smoker alcohol intake frequency: holidays/special occasions only Substance Use Type: does not use Exam Initial Vital Signs Initial Vital Signs: Vital Signs Temperature 98.8 F 09/29/21 14:53 Pulse Rate 86 09/29/21 14:53 Respiratory Rate 13 09/29/21 14:53 Blood Pressure 145/67 H 09/29/21 14:53 Pulse Oximetry 100 09/29/21 14:53 GENERAL: Alert 71-year-old female appears mildly weak but no acute distress HEENT: Head atraumatic,EOMI, pupils reactive, face symmetric, [moist] mucous membranes CARDIOVASCULAR: Regular rate and rhythm without murmurs, rubs or gallops. RESPIRATORY: Breath sounds equal bilaterally, no wheezes rales or rhonchi. No tachypnea or conversational dyspnea no sign of respiratory distress ABDOMEN: Soft, nontender. Normoactive bowel sounds all 4 quadrants. No guarding or rebound. EXTREMITIES: Normal range of motion, no clubbing or edema. Neurovascularly intact NEUROLOGICAL: Alert and oriented x4.Normal gait and speech. Ambulatory in the ED without difficulty. 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 SKIN: Warm, dry, no laceration, no petechiae, no rashes or lesions. Scores NIH Stroke Scale Level of Conciousness: Alert, keenly responsive Ask month/age: Answers both questions correctly. Open/close eyes, close hand: Performs both tasks correctly Best gaze horizontal: Normal Visual coe: No visual loss Facial palsy: Normal symetrical movement Left arm drift: No drift for full 10 sec Right arm drift: No drift for full 10 sec Left leg drift: No drift for full 5 sec Right leg drift: No drift for full 5 sec Limb ataxia: Absent Sensory on face/arms/legs: Normal, no sensory loss Best language: No aphasia, normal Dysarthria: Normal Extinction or inattention: No abnormality Total NIH Stroke scale score: 0 PERC Score Age greater than or equal to 50 years: Yes Heart rate greater than or equal to 100 bpm: No Room Air O2 Sat less than 95%: No Unilateral leg swelling: No Recent trauma or surgery: No Hemoptysis: No Prior PE or DVT: No Hormone Use: No Total PERC Score: 1 Course Orders Ordered: ED Orders 09/29/21 15:00 Complete Blood Count AUTO DIFF Stat Comprehensive Metabolic Panel Stat Lipase Stat Troponin & CK Cardiac Panel Stat 09/29/21 15:13 XR chest 1V Stat EKG-12 Lead Stat 09/29/21 15:20 BNP [NT-proBNP (BNP-Adult 18+)] Stat D Dimer Stat 09/29/21 15:51 CT head/brain wo con Stat 09/29/21 17:20 Urinalysis and Microscopic Stat Vital Signs Vital signs: Vital Signs - 8 hr 09/29/21 14:53 09/29/21 14:54 09/29/21 15:00 Temperature 98.8 F Pulse Rate 86 89 84 Respiratory Rate 13 18 Blood Pressure 145/67 H 145/67 H Pulse Oximetry 100 99 100 09/29/21 15:30 09/29/21 16:00 09/29/21 16:20 Temperature Pulse Rate 86 83 82 Respiratory Rate 18 18 16 Blood Pressure 147/76 H 135/72 137/75 Pulse Oximetry 100 98 98 09/29/21 16:30 09/29/21 17:00 09/29/21 17:30 Temperature Pulse Rate 84 91 H 87 Respiratory Rate 11 L 12 11 L Blood Pressure 131/73 142/73 H Pulse Oximetry 99 98 99 09/29/21 18:00 09/29/21 18:30 Temperature Pulse Rate 98 H 92 H Respiratory Rate 17 12 Blood Pressure Pulse Oximetry 98 98 MDM - Syncope Lab Data Result diagrams: 09/29/21 15:00 09/29/21 15:00 Labs: Lab Results 09/29/21 09/29/21 09/29/21 Range/Units 15:00 15:00 15:20 WBC 11.0 (4.5-11.0) X10^3/uL RBC 3.71 L (4.0-5.2) X10^6/uL Hgb 11.9 L (12.0-16.0) g/dL Hct 35.3 L (36-46) % MCV 95.2 (80-100) fL MCH 31.9 (26-34) PG MCHC 33.6 (30-36) % RDW 13.1 (11.6-14.8) % Plt Count 223 (150-400) X10^3/uL Neut % (Auto) 74.2 (50-75) % Lymph % (Auto) 15.2 L (25-40) % [place] % (Auto) 8.3 (3-14) % Eos % (Auto) 1.7 L (2-4) % Baso % (Auto) 0.6 (0-2) % Neut # (Auto) 8100 H (3176-3778) /uL Lymph # (Auto) 1700 (7233-4289) /uL [place] # (Auto) 900 (0-900) /uL Eos # (Auto) 200 (0-450) /uL Baso # (Auto) 100 (0-100) /uL D-Dimer < 200 (<230) ng/mL Sodium 141 (137-145) mmol/L Potassium 3.7 (3.4-5.1) mmol/L Chloride 105 (98-107) mmol/L Carbon Dioxide 30 (22-32) mmol/L BUN 20 H (7-17) mg/dL Creatinine 0.80 (0.52-1.04) mg/dL Estimated GFR > 60 (>60) mL/min BUN/Creatinine Ratio 25.0 H (6-22) Glucose 108 (80-110) mg/dL Calcium 9.4 (8.4-10.2) mg/dL Total Bilirubin 0.5 (0.2-1.3) mg/dL AST 30 (14-36) IU/L ALT 7 (<35) IU/L Alkaline Phosphatase 88 (38-126) U/L Total Creatine Kinase 81 (30-135) U/L CK-MB (CK-2) TNP CK-MB (CK-2) Rel Index TNP Troponin I < 0.012 (0.01-0.034) ng/mL NT-Pro-B Natriuret Pep (<125) pg/mL Total Protein 7.9 (6.3-8.2) g/dL Albumin 4.4 (3.5-5.0) g/dL Globulin 3.5 (1.7-4.1) g/dL Albumin/Globulin Ratio 1.3 (1.0-2.8) Lipase 120 (23-300) U/L Urine Color Urine Appearance Urine pH (4.5-8.0) Ur Specific [place] (1.000-1.035) Urine Protein (Negative) Urine Glucose (UA) (Negative) g/dL Urine Ketones (NEGATIVE) Urine Occult Blood (Negative) Urine Nitrate (Negative) Urine Bilirubin (NEGATIVE) Urine Urobilinogen (0.2) E.U./dL Ur Leukocyte Esterase (NEGATIVE) Urine RBC (0-5/HPF) Urine WBC (0-5/HPF) Ur Squamous Epith Cells (0-5/HPF) Urine Bacteria (None) Ur Culture Indicated? 09/29/21 09/29/21 Range/Units 15:20 17:20 WBC (4.5-11.0) X10^3/uL RBC (4.0-5.2) X10^6/uL Hgb (12.0-16.0) g/dL Hct (36-46) % MCV (80-100) fL MCH (26-34) PG MCHC (30-36) % RDW (11.6-14.8) % Plt Count (150-400) X10^3/uL Neut % (Auto) (50-75) % Lymph % (Auto) (25-40) % [place] % (Auto) (3-14) % Eos % (Auto) (2-4) % Baso % (Auto) (0-2) % Neut # (Auto) (0146-8402) /uL Lymph # (Auto) (2529-4876) /uL [place] # (Auto) (0-900) /uL Eos # (Auto) (0-450) /uL Baso # (Auto) (0-100) /uL D-Dimer (<230) ng/mL Sodium (137-145) mmol/L Potassium (3.4-5.1) mmol/L Chloride (98-107) mmol/L Carbon Dioxide (22-32) mmol/L BUN (7-17) mg/dL Creatinine (0.52-1.04) mg/dL Estimated GFR (>60) mL/min BUN/Creatinine Ratio (6-22) Glucose (80-110) mg/dL Calcium (8.4-10.2) mg/dL Total Bilirubin (0.2-1.3) mg/dL AST (14-36) IU/L ALT (<35) IU/L Alkaline Phosphatase (38-126) U/L Total Creatine Kinase (30-135) U/L CK-MB (CK-2) CK-MB (CK-2) Rel Index Troponin I (0.01-0.034) ng/mL NT-Pro-B Natriuret Pep 249 H (<125) pg/mL Total Protein (6.3-8.2) g/dL Albumin (3.5-5.0) g/dL Globulin (1.7-4.1) g/dL Albumin/Globulin Ratio (1.0-2.8) Lipase (23-300) U/L Urine Color Yellow Urine Appearance Clear Urine pH 6.5 (4.5-8.0) Ur Specific [place] 1.010 (1.000-1.035) Urine Protein Negative (Negative) Urine Glucose (UA) Trace H (Negative) g/dL Urine Ketones Negative (NEGATIVE) Urine Occult Blood Trace-intact (Negative) Urine Nitrate Negative (Negative) Urine Bilirubin Negative (NEGATIVE) Urine Urobilinogen 0.2 (0.2) E.U./dL Ur Leukocyte Esterase Negative (NEGATIVE) Urine RBC 1-5/hpf (0-5/HPF) Urine WBC None seen (0-5/HPF) Ur Squamous Epith Cells None seen (0-5/HPF) Urine Bacteria None seen (None) Ur Culture Indicated? Cult not indicated Imaging Data CT scan - head: Radiologist's Impression: Signed Patient: Nesha Bey MR#: [id number] : 1950 Acct:[id number] Age/Sex: 71 / F Date of Service: 09/29/21 Loc: ED Accession Number: [id number] ?? Procedure: CT head/brain wo con Ordering Provider: Poppy Alvarez D.O. PROCEDURE:? CT HEAD/BRAIN WO CON ? INDICATIONS:? dizzy weak ? TECHNIQUE:? Noncontrast 4.5 mm thick angled axial sections acquired from the foramen magnum to the vertex, with coronal and sagittal reformats.? For radiation dose reduction, the following was used:? automated exposure control, adjustment of mA and/or kV according to patient size.? ? COMPARISON:? None. ? FINDINGS:? Image quality:? Excellent.? ? CSF spaces:? Basal cisterns are patent.? No extra-axial fluid collections.? The ventricles are symmetric in size and shape.? ? Brain:? No intracranial bleeds or masses.? There is cerebral volume loss for age, with resultant ventricular and sulcal prominence.? There are periventricular and deep white matter chronic small vessel ischemic changes.? There is intracranial internal carotid artery atherosclerosis.? ? Skull and face:? Calvarium and visualized facial bones appear intact, without suspicious lesions.? ? Sinuses:? Visualized sinuses and mastoids are clear.? ? IMPRESSION:? No acute intracranial abnormality. ? ? Dictated by: Alf Calderon M.D. on 09/29/2021 at 16:23 ? ? Approved by: Alf Calderon M.D. on 09/29/2021 at 16:25 ? Chest x-ray: Radiologist's Impression: BRE Gonzalez [id number] XRay Report Signed Patient: Nesha Bey MR#: [id number] : 1950 Acct:[id number] Age/Sex: 71 / F Date of Service: 09/29/21 Loc: ED Accession Number: [id number] ?? Procedure: XR chest 1V Ordering Provider: Poppy Alvarez D.O. PROCEDURE:? XR CHEST 1V ? INDICATIONS:? syncope ? TECHNIQUE:? One view of the chest was acquired.? ? COMPARISON:? [facility], XR CHEST 1V, 09/11/2020, 19:34. ? FINDINGS:? ? Surgical changes and devices:? None.? ? Lungs and pleura:? Lungs are clear.? No pleural effusions or pneumothorax.? ? Mediastinum:? Mediastinal contours appear normal.? Heart size is normal.? ? Bones and chest wall:? No suspicious bony lesions.? Overlying soft tissues appear unremarkable.? ? IMPRESSION:? No acute cardiopulmonary findings. ? ? Dictated by: Lucina Luevano M.D. on 09/29/2021 at 16:23 ?? ECG Data Interpretation: Normal sinus rhythm rate 86 ME interval 118 QRS [address] changes no T-wave inversion similar to previous EKG 07/08/2021 MDM Narrative Medical decision making narrative: Patient has had ongoing weakness for a while. It may be related to her decrease in appetite. She is also being seen for depression symptoms may also be related to this as well. She has dizziness but no focal deficits. Head CT today is negative. Her dizziness seems to have the ongoing does not seem new but maybe had acute on chronic episode today. This has really been ongoing for a while I do not think posterior stroke. Seems to be very positional. And she clearly has decreased intake. I do not think CT angio indicated at this time. She Has been ambulatory to the restroom without difficulty. She is complaining of shortness breath is but no evidence of pneumonia or cause of shortness of breath. BNP is negative D-dimer is negative unlikely to be pulmonary embolism. Cardiac workup is also negative. He complains of shortness of breath cough still lead although she clinically does not appear short of breath. A discussion with her and her to drink more fluid and try and get some nutrients in with a nutrition drink. At this time no further workup to be done in the ED and return as needed. Discharge Plan Departure Patient Disposition: Home Clinical Impression: Parkinsons Activity Restrictions/Additional Instructions: *You have been diagnosed with Parkinson *What to do: At this time blood work is overall reassuring. Head CT is negative. Unfortunately I cannot find cause of your shortness of breath or slight dizziness. Although I do encourage you to drink more fluid and eat more. A boost or an Ensure will help get the nutrients you need. *Continue to take medications as directed *Follow up with your primary care provider in 2-3 days or call [phone] *Return to ER if you should have increasing dizziness falls, chest pain fever or any new, worsening or concerning symptoms Prescriptions: No Action venlafaxine 75 mg capsule,extended release 24hr 75 mg PO DAILY Qty: 30 3RF Hold Instructions: may be causing nausea pimavanserin 34 mg capsule 34 mg PO DAILY Qty: 30 3RF carbidopa-levodopa 50-200 mg tablet extended release 1 tab PO TID 0RF donepezil 5 mg tablet 10 mg PO BID 0RF Referrals: Aniceto Lion MD [Primary Care Provider] -
[2021-09-29 15:26] LABS: Alanine Aminotransferase 7 IU/L (<35); Albumin 4.4 g/dL (3.5-5.0); Albumin Globulin Ratio 1.3 (1.0-2.8); Alkaline Phosphatase 88 U/L (38-126); Aspartate Aminotransferase 30 IU/L (14-36); Bilirubin Total 0.5 mg/dL (0.2-1.3); Blood Urea Nitrogen 20 mg/dL (7-17); Calcium 9.4 mg/dL (8.4-10.2); Carbon Dioxide 30 mmol/L (22-32); Chloride 105 mmol/L (98-107); Creatine Kinase 81 U/L (30-135); Estimated Glomerular Filt Rate > 60 mL/min (>60); Globulin 3.5 g/dL (1.7-4.1); Glucose 108 mg/dL (80-110); HEMOLYSIS < 15 (0-50); Lipase 120 U/L (23-300); Potassium 3.7 mmol/L (3.4-5.1); Sodium 141 mmol/L (137-145); Total Protein 7.9 g/dL (6.3-8.2)
[2021-09-29 15:29] LABS: Add Manual Diff / Slide Review NO; Basophils Absolute Auto 100 /uL (0-100); Basophils Percent Auto 0.6 % (0-2); Eosinophils Absolute Auto 200 /uL (0-450); Eosinophils Percent Auto 1.7 % (2-4); Hematocrit 35.3 % (36-46); Hemoglobin 11.9 g/dL (12.0-16.0); Lymphocytes Absolute Auto 1700 /uL (1100-4500); Lymphocytes Percent Auto 15.2 % (25-40); Mean Corpuscular HGB Conc 33.6 % (30-36); Mean Corpuscular Hemoglobin 31.9 PG (26-34); Mean Corpuscular Volume 95.2 fL (80-100); Monocytes Absolute Auto 900 /uL (0-900); Monocytes Percent Auto 8.3 % (3-14); Neutrophils Absolute Auto 8100 /uL (1500-7000); Neutrophils Percent Auto 74.2 % (50-75); Platelet Count 223 X10^3/uL (150-400); Red Blood Cell Count 3.71 X10^6/uL (4.0-5.2); Red Cell Distribution Width 13.1 % (11.6-14.8)
[2021-09-29 15:37] LABS: Troponin I < 0.012 ng/mL (0.01-0.034)
--- NOTE | 2021-09-29 15:51 | DI.CT.S_ITS ---
PROCEDURE: CT HEAD/BRAIN WO CON INDICATIONS: dizzy weak TECHNIQUE: Noncontrast 4.5 mm thick angled axial sections acquired from the foramen magnum to the vertex, with coronal and sagittal reformats. For radiation dose reduction, the following was used: automated exposure control, adjustment of mA and/or kV according to patient size. COMPARISON: None. FINDINGS: Image quality: Excellent. CSF spaces: Basal cisterns are patent. No extra-axial fluid collections. The ventricles are symmetric in size and shape. Brain: No intracranial bleeds or masses. There is cerebral volume loss for age, with resultant ventricular and sulcal prominence. There are periventricular and deep white matter chronic small vessel ischemic changes. There is intracranial internal carotid artery atherosclerosis. Skull and face: Calvarium and visualized facial bones appear intact, without suspicious lesions. Sinuses: Visualized sinuses and mastoids are clear. IMPRESSION: No acute intracranial abnormality. Dictated by: Alf Calderon M.D. on 09/29/2021 at 16:23 Approved by: Alf Calderon M.D. on 09/29/2021 at 16:25
[2021-09-29 17:33] LABS: Appearance Urine UA CLEAR; Bilirubin Urine UA NEGATIVE (NEGATIVE); Color Urine UA YELLOW; Glucose Urine UA TRACE g/dL (Negative); Ketones Urine UA NEGATIVE (NEGATIVE); Leukocyte Esterase Urine UA NEGATIVE (NEGATIVE); Nitrite Urine UA NEGATIVE (Negative); Occult Blood Urine UA TRACE-INTACT (Negative); Protein Urine UA NEGATIVE (Negative); Urobilinogen Urine UA 0.2 E.U./dL (0.2)
[2021-09-29 17:35] LABS: pH Urine UA 6.5 (4.5-8.0)
[2021-09-29 17:56] LABS: Bacteria Urine None Seen; Culture Indicated Urine Cult Not Indicated; RBC Urine 1-5/HPF (0-5/HPF); Squamous Epithelial Cell Urine None Seen (0-5/HPF); WBC Urine None Seen (0-5/HPF)
[2021-09-29 18:08] LABS: D Dimer < 200 ng/mL (<230)
[2021-09-29 18:18] LABS: NT-proBNP (BNP-Adult 18+) 249 pg/mL (<125)
== END 2021-09-29 18:40 | disposition home or self-care (01) ==
PROVIDERS: Emergency Provider Emergency Medicine; Family Provider Family Medicine; PCP Family Medicine
DX: G20 Parkinson's disease (principal); R55 Syncope and collapse; R42 Dizziness and giddiness
CPT/HCPCS: 36415; 70450; 71045; 80053; 81001; 82550; 83690; 83880; 84484; 85025; 85379; 93005; 93010; 99283; 99284

== ENCOUNTER → 2021-11-11 13:43 | Outpatient (CLI) | payer MEDICARE, BC, SELFPAY ==
--- NOTE | 2021-11-11 14:02 | DIET.CONS ---
Dietary Consultation Note Assessment: 71y F attending RD visit for help with recent weight loss secondary to Parkinsons and lewy body dementia attending c supportive spouse, Manjinder. Pt diagnosed c Parkinsons in spring and lewy body spring. Pt had lost 50# over last few years, doesn't have sense of taste or smell for past year, digestion slowed down. Pt endorses near constant pacing at home, has difficulty sitting still. Ht: 5'2 Wt: 115.5# (up from 113# in September) BMI: 21.1 (low for age) Pt and spouse have several concerns today: 1. Pt with some paranoia regarding processed foods, old foods in freezer, as well as concerns regarding desire for simple foods, digestive concerns, fear of eating protein to counteract her levodopa medication. 2. 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 Pt and spouse have followed Mediterranean style diet for most of their relationship. They eat poultry and fish, no pork or beef, do cheese, dairy and lots of fruits and veggies. Pt takes levodopa at 8am, 4pm, midnight. She is waking up at 3am and pacing the bedroom until spouse wakes up at 8-9am. Nutrition Diagnosis: abnormal weight loss r/t progressive parkinsons and lewy body disease aeb pt reports 50# unintended weight loss, taste changes, hunger and thirst dimming, pt pacing most of the day, pt avoiding protein for fear of DNIs. Interventions: 1. To address pts paranoia around processed foods, educated pt and spouse on minimally processed vs ultraprocessed foods. Confirmed c pt and spouse they are not eating ultraprocessed foods. Pt happy to learn this information. 2. To address pts paranoia about old food in the freezer. Printed a guide to storage of foods in freezer. Reviewed c pt fruits can be stored in freezer for 1y. Pt happy to learn this information. 3. To address pts desire for simple foods, worked extensively c pt and spouse on identifying pt would like fewer mixed meals and prefers singular ingredients. Provided smoothie handout with instructions to mix no more than 3 ingredients at a time. When making mixed meals, choose one or two vegetables. Currently pts spouse making kitchen sink smoothies and up to 6 vegetables mixed in same dish. Pt feels overwhelmed by not only the volume on the plate but the variety. Pt will feel more secure with less variety. 4. Pt with some heart burn and indigestion. Recc pt avoid hot spices, garlic, broccoli and cauliflower per reported difficulties with these foods. Recc keeping beverages around the house to support hydration (constipation) and eating yogurt daily for probiotic. 5. Educated pt and spouse on DNI for levodopa and protein. Pt to avoid protein foods only one hour prior and one hour after medication dosing. Otherwise pt free to eat protein. Provided high protein MNT sheet and recc initiation of ONS if pt not able to meet needs with meals. 6. Reinforced pts current sx in line with expected progression of disease state. Pts requests and preferences likely not to improve, only worsen, though timing is unclear. Recc pts spouse prepare simple meals for her and request help from home health if he is feeling taxed. EER: 1560kcals (30kcal/kg), 62g PRO (1.2g/kg) Monitoring/Evaluations: f/u prn Electronically Signed by: Roula Gillespie 11/11/21 14:02 Clinical Dietitian [address] [id number]
[2021-11-11 15:30] VITALS: BMI 21.1
== END ==
PROVIDERS: Family Provider Family Medicine; PCP Family Medicine; Referring Provider Family Medicine; Visit Provider Family Medicine
DX: R63.4 Abnormal weight loss (principal); G31.83 Neurocognitive disorder with Lewy bodies; F02.80 Dementia in other diseases classified elsewhere, unspecified severity, without behavioral disturbance, psychotic disturbance, mood disturbance, and anxiety; Z71.3 Dietary counseling and surveillance; Z68.21 Body mass index [BMI] 21.0-21.9, adult
CPT/HCPCS: 97802